=== PATIENT | female | born 1950 | race Caucasian/White ===

== ENCOUNTER → 2016-11-20 | Outpatient (CLI) | payer MEDICARE, BC ==
[~2016-11-20] MED LIST: ASPI81TA82 PO; ATOR20TA PO; ATOR20TA42 PO; BACL10TA PO; CINN500C7 PO; CIPR500T2 PO; CYCL1PAK PO; DICL1GEL TOP; DOCU1CAP39 PO; ECOT81TA2 PO; ESTR42.5V PV; ESTR42.5V VAGINAL; FERR324T4 PO; FURO1TAB93 PO; GABA300 PO; GABA300C3 PO; GLUC250C5 PO; HYDR-3580 PO; LEVO.075 PO; LISI20 PO; LISI40TA PO; LORA10 PO; METF500 PO; MULT-65 PO; NORC10TA2 PO; OMEP20TA39 PO; PANT20 PO; RIVA10 PO; SYNT75TA PO; THERM PO; Z.0.COMMODE-3:1; Z.0.CPM; Z.0.WALKERFRONT
[2016-11-20 11:46] LABS: HEMATOCRIT 32.3 % (35.0-46.0); MEAN CELL VOLUME 89.5 FL (80.0-100.0); MEAN CORPUSCULAR HEMOGLOBIN 29.5 PG (27.0-34.0); PLATELET COUNT 248 TH/MM3 (150-450); RED BLOOD COUNT 3.61 MIL/MM3 (4.00-5.30); RED CELL DISTRIBUTION WIDTH 14.6 % (11.6-17.2); REVIEW FLAG FINAL; WHITE BLOOD COUNT 6.7 TH/MM3 (4.0-11.0)
[2016-11-20 11:58] LABS: BACTERIA, URINE RARE /hpf; BLOOD, URINE NEG (NEG); GLUCOSE,URINE NEG (NEG); KETONE, URINE NEG (NEG); MUCUS URINE FEW /lpf (OCC); NITRITE,URINE NEG (NEG); SQUAMOUS EPITHELIAL CELL URINE 3 /hpf (0-5); URINE COLOR YELLOW (YELLW/STRAW)
[2016-11-20 11:59] LABS: COMMENT (UR) CULT NOT INDICATED; CULTURE IF INDICATED CULT NOT INDICATED
[2016-11-20 12:12] LABS: BICARBONATE 32.3 MEQ/L (21.0-32.0); POTASSIUM 4.4 MEQ/L (3.5-5.1)
== END ==
LOC: CLAB 11:10
PROVIDERS: ATTEND Physician Assistant
DX: N18.4 Chronic kidney disease, stage 4 (severe) (principal)
CPT/HCPCS: 36415; 80069; 81001; 82570; 83970; 84156; 85027

== ENCOUNTER → 2017-01-14 | Outpatient (CLI) | payer MEDICARE, BC ==
[2017-01-14 10:33] LABS: BICARBONATE 30.1 MEQ/L (21.0-32.0); POTASSIUM 4.2 MEQ/L (3.5-5.1)
== END ==
LOC: CLAB 09:42
PROVIDERS: ATTEND Internal Medicine Interventional Cardiology
DX: I11.9 Hypertensive heart disease without heart failure (principal); E78.2 Mixed hyperlipidemia; E66.09 Other obesity due to excess calories
CPT/HCPCS: 36415; 80048

== ENCOUNTER → 2017-01-25 | Outpatient (CLI) | payer MEDICARE, BC ==
[2017-01-25 09:11] LABS: HEMATOCRIT 34.8 % (35.0-46.0); MEAN CELL VOLUME 88.8 FL (80.0-100.0); MEAN CORPUSCULAR HEMOGLOBIN 29.3 PG (27.0-34.0); PLATELET COUNT 232 TH/MM3 (150-450); RED BLOOD COUNT 3.92 MIL/MM3 (4.00-5.30); RED CELL DISTRIBUTION WIDTH 13.9 % (11.6-17.2); REVIEW FLAG FINAL; WHITE BLOOD COUNT 6.5 TH/MM3 (4.0-11.0)
[2017-01-25 09:34] LABS: BACTERIA, URINE OCC /hpf; BLOOD, URINE NEG (NEG); COMMENT (UR) CULT NOT INDICATED; CULTURE IF INDICATED CULT NOT INDICATED; GLUCOSE,URINE NEG (NEG); KETONE, URINE NEG (NEG); NITRITE,URINE NEG (NEG); SQUAMOUS EPITHELIAL CELL URINE 4 /hpf (0-5); URINE COLOR LIGHT-YELLOW (YELLW/STRAW)
[2017-01-25 09:46] LABS: ANION GAP 8 MEQ/L (5-15); BICARBONATE 28.6 MEQ/L (21.0-32.0); BLOOD UREA NITROGEN 23 MG/DL (7-18); CHLORIDE 104 MEQ/L (98-107); FERRITIN 53 NG/ML (8-252); GLOMERULAR FILTRATION RATE 25 ML/MIN (>89); GLUCOSE,FASTING 135 MG/DL (74-99); POTASSIUM 3.9 MEQ/L (3.5-5.1); SODIUM (NA) 141 MEQ/L (136-145); TRANSFERRIN IRON PROFILE 222 MG/DL (200-360)
== END ==
LOC: CLAB 08:47
PROVIDERS: ATTEND Physician Assistant
DX: N25.81 Secondary hyperparathyroidism of renal origin (principal); N18.4 Chronic kidney disease, stage 4 (severe); D63.1 Anemia in chronic kidney disease; E55.9 Vitamin D deficiency, unspecified
CPT/HCPCS: 36415; 80069; 81001; 82306; 82570; 82728; 83540; 83550; 83970; 84156; 85027

== ENCOUNTER → 2017-03-20 | Outpatient (CLI) | payer MEDICARE, BC ==
[2017-03-20 16:11] LABS: BICARBONATE 30.9 MEQ/L (21.0-32.0); POTASSIUM 4.2 MEQ/L (3.5-5.1)
== END ==
LOC: CLAB 15:27
PROVIDERS: ATTEND Internal Medicine Nephrology
DX: I10 Essential (primary) hypertension (principal); E55.9 Vitamin D deficiency, unspecified
CPT/HCPCS: 36415; 80069; 82306

== ENCOUNTER → 2017-11-28 | Day surgery (SDC) | payer MEDICARE, BC ==
--- NOTE | 2017-11-27 17:43 | MH ---
cc: STEPHON REYES DATE OF ADMISSION 11/28/2017 ADMITTING DIAGNOSIS A 67-year-old female with chronic otitis media for bilateral myringotomy and tube placement. PAST MEDICAL HISTORY Unremarkable. PAST SURGICAL HISTORY Unremarkable. REVIEW OF SYSTEMS, FAMILY HISTORY AND SOCIAL HISTORY Unremarkable. PHYSICAL EXAMINATION GENERAL: A well-appearing patient in no acute distress is noted. HEENT: Exam reveals significant retraction of ear drums bilaterally. Nasal, oral and neck are clear. LUNGS: Clear. HEART: Regular rate and rhythm. ABDOMEN: Soft and nontender. EXTREMITIES: Without clubbing, cyanosis or edema. NEUROLOGIC: Alert, oriented, nonfocal neurologic exam. IMPRESSION/PLAN A patient with chronic otitis for tubes. Instructed in the method of surgery and possible complication include anesthetic complications, cardiac difficulty, pulmonary difficulty, stroke, or even . Surgical complications bleeding, infection, early or late extrusion of tubes, Tympanic membrane perforation, conductive or sensorineural hearing loss. The patient appeared to agree, accept and understand above-mentioned risks and benefits. In addition no guarantees or warranties regarding outcome were given. Will therefore proceed with surgery. MD GLENDA Cameron/TOM /5:09 PM /5:24 PM
[~2017-11-28] VITALS: Ht 154.9 cm; Wt 96.4 kg
[~2017-11-28] MED LIST changes: +ACETAMINOPHEN/HYDROcodone 325 MG/7.5 MG TAB PO PRN; +ASPI1TAB57 PO; -ASPI81TA82 PO; -ATOR20TA PO; -ATOR20TA42 PO; +ATOR40TA16 PO; +CALC1TAB87 PO; +CHLORHEXIDINE GLUCONATE 2 % 1 PACK (2 CLOTHS) TOPICAL PRN; +CHOL1CAP34 PO; -CINN500C7 PO; -CIPR500T2 PO; -CYCL1PAK PO; +DEXAMETHASONE SOD PHOS 4 MG/ML VIAL IV ONE; -DICL1GEL TOP; +DIPH25CA PO; +DO NOT ADM ANY ANTICOAGULANT DRUGS PRN; -DOCU1CAP39 PO; -ECOT81TA2 PO; -ESTR42.5V PV; -ESTR42.5V VAGINAL; -FERR324T4 PO; -FURO1TAB93 PO; +FURO40TA PO; +FURO80TA PO; -GABA300 PO; -GABA300C3 PO; +GABA300C5 PO; -GLUC250C5 PO; +GLYB5TAB3 PO; -HYDR-3580 PO; +LACTATED RINGER'S 1000 ML IV PRN; +LIDOCAINE HCL 1% PF 5 ML SYRINGE OTHER ONE; -LISI20 PO; -LORA10 PO; +LUTE1TAB PO; +MEPERIDINE HCL 25 MG/ML VIAL IV PRN; -METF500 PO; +METOPROLOL TARTRATE 25 MG TAB PO PRN; +MIDAZOLAM HCL 2 MG/2 ML VIAL ONE; -NORC10TA2 PO; +OFLOXACIN 0.3% OPTH SOLN 5 ML BTL ONE; -OMEP20TA39 PO; +ONDANSETRON HCL 4 MG/2 ML VIAL IV PUSH ONE; +ONDANSETRON HCL 4 MG/2 ML VIAL IV PUSH PRN; -PANT20 PO; +PANT40TA3 PO; +POVIDONE IODINE 5% (ANTISEPSIS KIT) 4 APPLICATIONS EACH NARE PRN; +PROPOFOL 200 MG/20 ML AMP IV ONE; +RANI150T PO; -RIVA10 PO; +SODIUM CHLORID 0.9% 500 ML IV PRN; -SYNT75TA PO; -THERM PO; +TRAM50TA PO; +ULOR40TA PO; +VOLT1GEL16 TP; -Z.0.COMMODE-3:1; -Z.0.CPM; -Z.0.WALKERFRONT; +ZEAX5POW PO
[2017-11-28 09:15] VITALS: BP 133/53; PULSE 52; RESP 16; TEMP 97.6; O2SAT 97
--- NOTE | 2017-11-28 10:51 | MP ---
cc: STEPHON REYES DATE OF SURGERY: 11/28/2017 PREOPERATIVE DIAGNOSIS Chronic otitis media. PROCEDURE PERFORMED Bilateral myringotomy and tube placement. ANESTHESIA General anesthesia. ESTIMATED BLOOD LOSS Minimal. COMPLICATIONS No complications. OPERATING SURGEON Dr. Reyes. PROCEDURE The patient was prepped and draped in usual fashion. Inferior radial myringotomy incision was made in the left ear. Fluid was suctioned from middle ear cavity. Tympanostomy T-tube was placed in good position along with Oflox. In a similar fashion on the opposite side, anterior-inferior radial myringotomy incision made. Fluid was suctioned from middle ear cavity. Tympanostomy T-tube was placed in good position along with Oflox. The patient tolerated the procedure well. MD GLENDA Cameron/KAM /10:31 AM /10:37 AM
--- NOTE | 2017-11-28 23:25 | EKG ---
Date Performed: 11/28/2017 Time Performed: 07:00:50 PTAGE: 67 years EKG: SINUS BRADYCARDIA LOW QRS VOLTAGE IN PRECORDIAL LEADS BORDERLINE ECG PREVIOUS TRACING : 04/11/2016 08.54 Since the prior tracing, there has been no significant snow DOCTOR: Tito Webber Interpretating Date/Time 11/28/2017 23:24:42
== END | disposition home or self-care (01) ==
LOC: HSDC 06:00
PROVIDERS: ATTEND Specialist
DX: H66.93 Otitis media, unspecified, bilateral (principal); I10 Essential (primary) hypertension; E11.9 Type 2 diabetes mellitus without complications; Z79.84 Long term (current) use of oral hypoglycemic drugs
CPT/HCPCS: 00126; 69436; 93005; J1100; J2250; J2405; J7120

== ENCOUNTER → 2017-12-04 | Outpatient (CLI) | payer MEDICARE, BC ==
[~2017-12-04] MED LIST changes: -ACETAMINOPHEN/HYDROcodone 325 MG/7.5 MG TAB PO PRN; -CHLORHEXIDINE GLUCONATE 2 % 1 PACK (2 CLOTHS) TOPICAL PRN; -DEXAMETHASONE SOD PHOS 4 MG/ML VIAL IV ONE; -DO NOT ADM ANY ANTICOAGULANT DRUGS PRN; -LACTATED RINGER'S 1000 ML IV PRN; -LIDOCAINE HCL 1% PF 5 ML SYRINGE OTHER ONE; -MEPERIDINE HCL 25 MG/ML VIAL IV PRN; -METOPROLOL TARTRATE 25 MG TAB PO PRN; -MIDAZOLAM HCL 2 MG/2 ML VIAL ONE; -OFLOXACIN 0.3% OPTH SOLN 5 ML BTL ONE; -ONDANSETRON HCL 4 MG/2 ML VIAL IV PUSH ONE; -ONDANSETRON HCL 4 MG/2 ML VIAL IV PUSH PRN; -POVIDONE IODINE 5% (ANTISEPSIS KIT) 4 APPLICATIONS EACH NARE PRN; -PROPOFOL 200 MG/20 ML AMP IV ONE; -SODIUM CHLORID 0.9% 500 ML IV PRN
[2017-12-04 15:39] LABS: HEMATOCRIT 31.8 % (35.0-46.0); HEMOGLOBIN 11.1 GM/DL (11.6-15.3); MEAN CELL VOLUME 89.4 FL (80.0-100.0); MEAN CORPUSCULAR HEMOGLOBIN 31.3 PG (27.0-34.0); MEAN PLATELET VOLUME 8.8 FL (7.0-11.0); PLATELET COUNT 249 TH/MM3 (150-450); RED BLOOD COUNT 3.56 MIL/MM3 (4.00-5.30); RED CELL DISTRIBUTION WIDTH 14.4 % (11.6-17.2); WHITE BLOOD COUNT 7.8 TH/MM3 (4.0-11.0)
[2017-12-04 16:08] LABS: BACTERIA, URINE OCC /hpf; BILIRUBIN, URINE NEG (NEG); BLOOD, URINE NEG (NEG); GLUCOSE,URINE NEG (NEG); HYALINE CAST, URINE 14 /lpf (RARE); KETONE, URINE NEG (NEG); MUCUS URINE FEW /lpf (OCC); NITRITE,URINE NEG (NEG); SQUAMOUS EPITHELIAL CELL URINE 4 /hpf (0-5); URINE COLOR YELLOW (YELLW/STRAW); URINE LEUKOCYTE ESTERASE SMALL (NEG)
[2017-12-04 16:10] LABS: ALBUMIN 3.5 GM/DL (3.4-5.0); BICARBONATE 30.6 MEQ/L (21.0-32.0); CALCIUM 8.9 MG/DL (8.5-10.1); CREATININE 2.02 MG/DL (0.50-1.00); PHOSPHORUS 4.2 MG/DL (2.5-4.9)
== END ==
LOC: CLAB 14:50
PROVIDERS: ATTEND Internal Medicine Nephrology
DX: N18.4 Chronic kidney disease, stage 4 (severe) (principal); E55.9 Vitamin D deficiency, unspecified
CPT/HCPCS: 36415; 80069; 81001; 82306; 82570; 83970; 84156; 85027

== ENCOUNTER → 2018-03-13 | Outpatient (CLI) | payer MEDICARE, BC ==
[2018-03-13 15:42] LABS: HEMATOCRIT 35.2 % (35.0-46.0); HEMOGLOBIN 11.8 GM/DL (11.6-15.3); MEAN CELL VOLUME 89.6 FL (80.0-100.0); MEAN CORPUSCULAR HEMOGLOBIN 29.9 PG (27.0-34.0); MEAN CORPUSCULAR HGB CONC 33.4 % (32.0-36.0); MEAN PLATELET VOLUME 8.9 FL (7.0-11.0); PLATELET COUNT 292 TH/MM3 (150-450); RED BLOOD COUNT 3.92 MIL/MM3 (4.00-5.30); RED CELL DISTRIBUTION WIDTH 14.5 % (11.6-17.2); WHITE BLOOD COUNT 8.4 TH/MM3 (4.0-11.0)
[2018-03-13 15:46] LABS: AMORPHOUS SEDIMENT, URINE RARE; BACTERIA, URINE RARE /hpf; BILIRUBIN, URINE NEG (NEG); BLOOD, URINE NEG (NEG); GLUCOSE,URINE NEG (NEG); KETONE, URINE NEG (NEG); NITRITE,URINE NEG (NEG); SQUAMOUS EPITHELIAL CELL URINE 23 /hpf (0-5); URINE COLOR LIGHT-YELLOW (YELLW/STRAW); URINE LEUKOCYTE ESTERASE MOD (NEG)
[2018-03-13 16:04] LABS: PHOSPHORUS 3.5 MG/DL (2.5-4.9)
[2018-03-13 16:15] LABS: ALBUMIN 3.7 GM/DL (3.4-5.0); BICARBONATE 30.1 MEQ/L (21.0-32.0); CALCIUM 9.2 MG/DL (8.5-10.1); CREATININE 2.1 MG/DL (0.50-1.00)
== END ==
LOC: CLAB 15:12
PROVIDERS: ATTEND Physician Assistant
DX: E55.9 Vitamin D deficiency, unspecified (principal); N18.4 Chronic kidney disease, stage 4 (severe); R82.90 Unspecified abnormal findings in urine
CPT/HCPCS: 36415; 80069; 81001; 82306; 82570; 83970; 84156; 85027; 87086